=== PATIENT | female | born 1990 ===

== ENCOUNTER → 2018-03-30 | Outpatient (CLI) | payer OTHER | END | disposition home or self-care (01) | LOC: RADMN 08:50 | PROVIDERS: ATTEND Internal Medicine Cardiovascular Disease | DX: M50.123 Cervical disc disorder at C6-C7 level with radiculopathy (principal); R94.39 Abnormal result of other cardiovascular function study; I20.9 Angina pectoris, unspecified | CPT/HCPCS: 72141 ==